=== PATIENT | female | born 1940 | race Caucasian/White ===

== ENCOUNTER → 2017-07-14 | Outpatient (CLI) | payer OTHER, MEDICARE | LOC: BRMIMAGING 15:08 | PROVIDERS: ATTEND Internal Medicine | DX: Z12.31 Encounter for screening mammogram for malignant neoplasm of breast (principal) | CPT/HCPCS: G0202 ==

== ENCOUNTER → 2018-03-26 | Outpatient (CLI) | payer OTHER, MEDICARE | LOC: BHFA 10:00 | PROVIDERS: ATTEND Internal Medicine Cardiovascular Disease | DX: I48.91 Unspecified atrial fibrillation (principal) ==

== ENCOUNTER 2018-06-23 11:24 | Emergency (ER) | payer OTHER, MEDICARE ==
--- NOTE | 2018-06-23 11:52 | EDPHY ---
H & P Stated Complaint: Mechanical fall 5 days ago, anticoagulated Time Seen by Provider: 06/23/18 11:52 HPI/ROS: CHIEF COMPLAINT: Mechanical fall 5 days ago, anticoagulated, slight dizziness HISTORY OF PRESENT ILLNESS: The patient presents to the ED after she sustained a mechanical fall in [place] 5 days ago. She is currently anticoagulated with Eliquis for arrhythmia. The patient has had some mild symptoms of disequilibrium and vertigo. She was unable to get a CT scan in [place]. She presents to the ED today concerned about the possibility of intracranial hemorrhage. Additionally, the patient does complain of some tailbone pain she denies any additional traumatic injury. She denies any chest pain, shortness of breath or abdominal pain. REVIEW OF SYSTEMS: A comprehensive 10 point review of systems is otherwise negative aside from elements mentioned in the history of present illness. Source: Patient Exam Limitations: No limitations - Personal History Current Tetanus/Diphtheria Vaccine: Unsure Current Tetanus Diphtheria and Acellular Pertussis (TDAP): Unsure - Medical/Surgical History Hx Asthma: No Hx Chronic Respiratory Disease: Yes Hx Diabetes: No Hx Cardiac Disease: Yes Hx Renal Disease: No Hx Cirrhosis: No Hx Alcoholism: No Hx HIV/AIDS: No Hx Splenectomy or Spleen Trauma: No Other PMH: afib, cardiomyopathy, PPM, sarcoidosis (lungs, liver, spleen), chronic berillium disease - Social History Smoking Status: Never smoked - Physical Exam Exam: General Appearance: Alert, no distress Head: Sutured 2 cm laceration noted to the occiput Eyes: Pupils equal, round, reactive ENT, Mouth: No hemotympanum, no oral trauma Neck: Nontender, trachea midline Respiratory: No chest wall tender, no subcutaneous air, lungs clear bilaterally Cardiovascular: Regular rate and rhythm Abdomen: Abdomen is soft and nontender, pelvis stable Skin: No lacerations, No abrasion Back: No midline T/L/S pain, there is tenderness to palpation over the coccyx Extremities: Nontender, full range of motion Neurological: A&Ox3, normal motor function, normal sensory exam, GCS 15 Constitutional: Initial Vital Signs Temperature (C) 36.6 C 06/23/18 11:32 Heart Rate 87 06/23/18 11:32 Respiratory Rate 16 06/23/18 11:32 Blood Pressure 134/75 H 06/23/18 11:32 O2 Sat (%) 95 06/23/18 11:32 O2 Delivery Mode Room Air Allergies/Adverse Reactions: No Known Allergies Allergy (Unverified 06/23/18 11:29) Home Medications: Medication Instructions Recorded Atorvastatin Calcium 07/03/16 Coreg 07/03/16 Diovan 07/03/16 Lasix PRN 07/03/16 Oxybutynin Chloride 07/03/16 Prozac 10 MG (*) 07/03/16 Ranitidine HCl 07/03/16 Vitamin B12 07/03/16 Vitamin D3 07/03/16 Acetaminophen 06/23/18 Cipro 06/23/18 Coq-10 06/23/18 Eliquis 06/23/18 FLUoxetine 06/23/18 Fluticasone Nasal 06/23/18 Medical Decision Making - Diagnostics Imaging Results: Imaging Impressions Head CT 06/23/18 11:57 Impression: 1. There is no acute/subacute intracranial abnormality identified on this unenhanced CT evaluation. 2. There appears to be a peripherally calcified right frontal subcentimeter meningioma. One could consider follow-up MR imaging of the brain with and without contrast in 6 months to assure continued stability, as clinically directed. If there is further clinical concern regarding the patient's symptoms, more immediate MR imaging could be considered, if not otherwise contraindicated. Findings were discussed with Sabino Flaherty MD at 12:47, on 06/23/2018. ED Course/Re-evaluation: The patient presents to the ED with vague dizziness in the setting of a remote head injury. The patient arrives with a GCS of 15 an NIH stroke scale of 0. Because of her age in current anticoagulation status she did undergo a CT scan to evaluate for a subacute subdural hematoma. CT scan demonstrates no evidence of subdural hematoma. The patient does have some tenderness palpation over her coccyx without clinical evidence of a retroperitoneal or intra-abdominal injury. The patient will be discharged home with customary aftercare instructions and return precautions. Differential Diagnosis: Differential diagnosis considered includes subdural hematoma, skull fracture, intracranial hemorrhage Departure - Departure Disposition: Home, Routine, Self-Care Clinical Impression: Coccyx contusion, Minor head injury Condition: Good Instructions: Head Injury (ED) Additional Instructions: 1. I recommend suture removal in 5 days. This can be done in the emergency department for a charge. Your primary care provider or urgent care at the med center may be able to do it is well. 2. Your CT scan demonstrates no evidence of a skull fracture or intracranial hemorrhage. 3. Return to the ED for severe headache, vomiting, worsening pain or other concerns. 4. You do have a incidentally noted calcification on your head CT scan which likely represents a very small meningioma. This is likely been present for some time and is inconsequential. I would recommend that you discuss this finding with Dr. Colon to see if she would like to repeat your imaging in 6 months. Referrals: Sherri Colon MD [Primary Care Provider] - As per Instructions
[2018-06-23 13:03] VITALS: BP 134/72
== END 2018-06-23 13:09 | disposition home or self-care (01) ==
DX: S30.0XXA Contusion of lower back and pelvis, initial encounter (principal); S09.90XA Unspecified injury of head, initial encounter; Z79.01 Long term (current) use of anticoagulants; W19.XXXA Unspecified fall, initial encounter; Y92.9 Unspecified place or not applicable; Y93.9 Activity, unspecified; Y99.9 Unspecified external cause status

== ENCOUNTER → 2019-02-09 | Outpatient (CLI) | payer OTHER, MEDICARE | LOC: BRMIMAGING 09:41 | PROVIDERS: ATTEND Internal Medicine | DX: Z12.31 Encounter for screening mammogram for malignant neoplasm of breast (principal); Z80.3 Family history of malignant neoplasm of breast ==